=== PATIENT | female | born 1930 | race Caucasian/White ===

== ENCOUNTER 2017-02-13 15:34 | Emergency (ER) | payer MEDICARE, OTHER ==
[~2017-02-13 15:34] MED LIST: DONE5TAB14 PO; FURO1TAB93 PO; LISI-360 PO; LORA0.5T PO; LORTA5 PO; POTA-243 PO; PRAV20 PO; ZOLO50TA PO
[2017-02-13 15:39] VITALS: BP 149/59; PULSE 91; RESP 16; TEMP 98; O2SAT 96
[2017-02-13] MEDS ORDERED: DIPH25CA PO (15:55)
[2017-02-13] MEDS ORDERED: NYST10007 TOPICAL (15:55)
[2017-02-13] MEDS ORDERED: SERT-132 PO (15:55)
[2017-02-13] MEDS ORDERED: CLON0.1T PO (15:55)
[2017-02-13] MEDS ORDERED: CETACRE3 (15:55)
[2017-02-13] MEDS ORDERED: MONT10TA4 PO (15:55)
[2017-02-13 16:43] VITALS: O2SAT 98
--- NOTE | 2017-02-13 16:43 | PD ---
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 Bleeding was noted yesterday evening and was light at that time. After the patient left the shower today there was a puddle of blood on the floor. She has not any antiplatelets or anticoagulants. She denies abdominal pain or vaginal pain. No urinary symptoms. She believes that the bleeding is from her vagina and not from her rectum. PFSH Past Medical History COPD: Yes Dementia: Yes Diabetes: Yes Patient Takes Glucophage: No Diminished Hearing: No Psychiatric: Yes (schitzophrenia) Tetanus Vaccination: Unknown Influenza Vaccination: No ?: Not Past Surgical History Surgical History: No Previous Surgery Social History Alcohol Use: No Tobacco Use: No Substance Use: No Allergies-Medications (Allergen,Severity, Reaction): Coded Allergies: penicillin G (Unverified Allergy, Unknown, 01/16/17) Reported Meds & Prescriptions Reported Meds & Active Scripts Active Macrobid (Nitrofurantoin Monoh/Nitrofur Macro) 100 Mg Cap 100 Mg PO BID 5 Days Reported Nystop Topical (Nystatin Topical) 100,000 Unit/Gm Powd 1 Applic TOPICAL Q12HR Diphenhydramine (Diphenhydramine HCl) 25 Mg Cap 25 Mg PO ONCE Clonidine (Clonidine HCl) 0.1 Mg Tab 0.1 Mg PO BID Cetaphil Moisturizing (Emollient) 1 Cre Cre Sertraline (Sertraline HCl) 50 Mg Tab 50 Mg PO DAILY Montelukast (Montelukast Sodium) 10 Mg Tab 10 Mg PO HS Review of Systems Except as stated in HPI: all other systems reviewed are Neg Physical Exam Narrative GENERAL: Well-developed, well-nourished, awake, alert, no apparent distress. SKIN: Focused skin assessment warm/dry. No pallor. HEAD: Atraumatic. Normocephalic. EYES: Pupils equal and round. No scleral icterus. No injection or drainage. ENT: Mucous membranes pink and moist. NECK: Trachea midline. No JVD. CARDIOVASCULAR: Regular rate and rhythm. RESPIRATORY: No accessory muscle use. Clear to auscultation. Breath sounds equal bilaterally. GASTROINTESTINAL: Abdomen soft, nondistended. Mild diffuse tenderness. No rebound or guarding. RECTUM: No masses, no fissures, no hemorrhoids, heme positive brown stool. 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 Exam limited because the patient could not tolerate speculum exam. Normal external genitalia with some dryness to the skin as well as mild erythema with satellite lesions consistent with Erlinda. There is nice nystatin powder in this region. No blood coming from vagina. No obvious masses. MUSCULOSKELETAL: No obvious deformities. No clubbing. No cyanosis. No edema. NEUROLOGICAL: Awake and alert. No obvious cranial nerve deficits. Motor grossly within normal limits. Normal speech. PSYCHIATRIC: Appropriate mood and affect; insight and judgment normal. Data Data Last Documented VS Vital Signs Date Time Temp Pulse Resp B/P (MAP) Pulse Ox O2 Delivery O2 Flow Rate FiO2 02/13/17 18:23 68 20 198/63 (108) 98 02/13/17 15:39 98.0 Orders Orders Complete Blood Count With Diff (02/13/17 16:35) Comprehensive Metabolic Panel (02/13/17 16:35) Prothrombin Time / Inr (Pt) (02/13/17 16:35) Act Partial Throm Time (Ptt) (02/13/17 16:35) Urinalysis - C+S If Indicated (02/13/17 16:35) Ct Abd/Pel W Iv Contrast(Rout) (02/13/17 16:35) Iv Access Insert/Monitor (02/13/17 16:35) Ecg Monitoring (02/13/17 16:35) Oximetry (02/13/17 16:35) Sodium Chloride 0.9% Flush (Ns Flush) (02/13/17 16:45) Us Pelvis Comp Shoe Coverer/Non-Preg (02/13/17 ) Type And Screen (02/13/17 16:45) Iohexol 350 Inj (Omnipaque 350 Inj) (02/13/17 18:02) Urine Culture (02/13/17 18:35) Nitrofurantoin Monohyd Macrocr (Macrobid (02/13/17 20:15) Labs Laboratory Tests Test 02/13/17 16:40 02/13/17 18:35 White Blood Count 7.7 TH/MM3 Red Blood Count 4.73 MIL/MM3 Hemoglobin 13.3 GM/DL Hematocrit 39.2 % Mean Corpuscular Volume 82.9 FL Mean Corpuscular Hemoglobin 28.0 PG Mean Corpuscular Hemoglobin Concent 33.8 % Red Cell Distribution Width 13.4 % Platelet Count 234 TH/MM3 Mean Platelet Volume 7.8 FL Neutrophils (%) (Auto) 71.5 % Lymphocytes (%) (Auto) 19.6 % Monocytes (%) (Auto) 4.6 % Eosinophils (%) (Auto) 3.5 % Basophils (%) (Auto) 0.8 % Neutrophils # (Auto) 5.4 TH/MM3 Lymphocytes # (Auto) 1.5 TH/MM3 Monocytes # (Auto) 0.4 TH/MM3 Eosinophils # (Auto) 0.3 TH/MM3 Basophils # (Auto) 0.1 TH/MM3 CBC Comment DIFF FINAL Differential Comment Prothrombin Time 10.0 SEC Prothromb Time International Ratio 0.9 RATIO Activated Partial Thromboplast Time 26.2 SEC Blood Urea Nitrogen 15 MG/DL Creatinine 1.00 MG/DL Random Glucose 188 MG/DL Total Protein 7.0 GM/DL Albumin 3.3 GM/DL Calcium Level 8.2 MG/DL Alkaline Phosphatase 104 U/L Aspartate Amino Transf (AST/SGOT) 30 U/L Alanine Aminotransferase (ALT/SGPT) 37 U/L Total Bilirubin 0.5 MG/DL Sodium Level 134 MEQ/L Potassium Level 4.0 MEQ/L Chloride Level 99 MEQ/L Carbon Dioxide Level 29.3 MEQ/L Anion Gap 6 MEQ/L Estimat Glomerular Filtration Rate 53 ML/MIN Urine Color YELLOW Urine Turbidity CLOUDY Urine pH 6.0 Urine Specific [place] 1.020 Urine Protein TRACE mg/dL Urine Glucose (UA) 100 mg/dL Urine Ketones NEG mg/dL Urine Occult Blood LARGE Urine Nitrite NEG Urine Bilirubin NEG Urine Leukocyte Esterase TRACE Urine RBC 50-99 /hpf Urine WBC 9-14 /hpf Urine Squamous Epithelial Cells 6-8 /hpf Urine Bacteria RARE /hpf Microscopic Urinalysis Comment CULTURE INDICATED MDM Medical Decision Making Medical Screen Exam Complete: Yes Emergency Medical Condition: Yes Differential Diagnosis GI bleed, diverticulitis, diverticulosis, colon CA, endometrial CA, uterine fibroids, anemia, UTI Narrative Course Initial vital signs show heart rate 91, blood pressure 149/59, pulse ox 96% on room air, oral temp 98F. CBC shows WBC 7.7, hemoglobin 13.3, hematocrit 39.2, platelets 234. CMP is remarkable for random glucose 188, otherwise unremarkable. Coags are normal. UA is suggestive of UTI. The patient will be started on Macrobid. Pelvis ultrasound: CONCLUSION: 1. The endometrium is mildly prominent and heterogeneous with possible small fluid collection. 2. Bilateral hypoechoic cystic structures in the ovaries left greater than right. CT abdomen pelvis: CONCLUSION: 1. 2.9 cm heterogeneous area in the region of the lower uterine segment of concern for a possible mass. Adnexal regions are within normal limits. 2. Enlarged and fatty infiltrated liver. Case discussed with the patient's primary care physician Dr. Yang. The patient is hemodynamically stable. Her H&H is normal. She does have heme positive/brown stool and reports that her brother had colon cancer. She does not recall if she has ever had a colonoscopy. Patient also has endometrial thickening with a fluid collection in her uterus which is likely some bleeding. There is no active bleeding on physical exam. The patient can be further worked up as an outpatient with both TREE EXPERT as well as GI. The patient's primary care physician Dr. Yang will facilitate outpatient workup. The patient and the patient's daughter were made aware of all findings and provided copies of the CT and ultrasound reports. They are amenable to plan for further workup as an outpatient. They were informed on when to return to the emergency department. [facility] Point of Care Internal Pos. & Neg. Controls: Passed Fecal Specimen Occult Blood: Positive Comment Heme positive brown stool. Diagnosis Primary Impression: Vaginal bleeding Additional Impressions: Heme positive stool UTI (urinary tract infection) Qualified Codes: N39.0 - Urinary tract infection, site not specified; R31.9 - Hematuria, unspecified Referrals: Mirian Anthony MD 3 days [employer] Shannan Parr MD 3 days TREE EXPERT/oncologist Primary Care Physician 3 days Additional Instructions: Follow-up with your primary care physician this week. Follow-up with an TREE EXPERT physician this week. Follow-up with a crusher operator this week. Return to the emergency department for worsening symptoms or any other concerns as discussed. Scripts Nitrofurantoin Monohydrate Macrocrystals (Macrobid) 100 Mg Cap 100 MG PO BID for Infection for 5 Days, CAP 0 Refills Prov: Noble Lara MD 02/13/17 Disposition: 01 DISCHARGE HOME Condition: Stable Noble Lara MD Feb 13, 2017 16:43
[2017-02-13] MEDS ORDERED: SODIUM CHLORIDE 0.9% FLUSH 10 ML FLUSH IV FLUSH PRN (16:45)
[2017-02-13 16:46] VITALS: BP 160/72; PULSE 68; RESP 20; O2SAT 98
[2017-02-13 16:47] LABS: AUTOMATED NEUTROPHIL # 5.4 TH/MM3 (1.8-7.7); BASOPHIL # 0.1 TH/MM3 (0-0.2); BASOPHIL % 0.8 % (0.0-2.0); EOSINOPHIL # 0.3 TH/MM3 (0-0.4); EOSINOPHIL % 3.5 % (0.0-4.0); HEMATOCRIT 39.2 % (35.0-46.0); HEMO FLAGS DIFF FINAL; LYMPH % 19.6 % (9.0-44.0); LYMPHOCYTE # 1.5 TH/MM3 (1.0-4.8); MEAN CELL VOLUME 82.9 FL (80.0-100.0); MEAN CORPUSCULAR HGB CONC 33.8 % (32.0-36.0); MONO % 4.6 % (0.0-8.0); NEUT % 71.5 % (16.0-70.0); PLATELET COUNT 234 TH/MM3 (150-450); RED BLOOD COUNT 4.73 MIL/MM3 (4.00-5.30); RED CELL DISTRIBUTION WIDTH 13.4 % (11.6-17.2); WHITE BLOOD COUNT 7.7 TH/MM3 (4.0-11.0)
[2017-02-13 16:58] LABS: CHLORIDE 99 MEQ/L (98-107); SODIUM (NA) 134 MEQ/L (136-145)
[2017-02-13 17:02] LABS: ANION GAP 6 MEQ/L (5-15); APTT (PATIENT) 26.2 SEC (24.3-30.1); BICARBONATE 29.3 MEQ/L (21.0-32.0); BLOOD UREA NITROGEN 15 MG/DL (7-18); INTERNATIONAL NORMALIZED RATIO 0.9 RATIO
[2017-02-13 17:05] LABS: ALT (GPT) 37 U/L (10-53); AST (GOT) 30 U/L (15-37); GLOMERULAR FILTRATION RATE 53 ML/MIN (>89)
[2017-02-13 17:07] LABS: TOTAL BILIRUBIN ADULT 0.5 MG/DL (0.2-1.0)
[2017-02-13 17:08] LABS: ALKALINE PHOSPHATASE 104 U/L (45-117)
--- NOTE | 2017-02-13 17:49 | RADRPT ---
EXAM DATE/TIME: 02/13/2017 17:28 [facility] COMPARISON: No previous studies available for comparison. INDICATIONS : Vaginal bleeding. MEDICAL HISTORY : Chronic obstructive pulmonary disease. Dementia. Schizophrenia. Diabetes. SURGICAL HISTORY : None. ENCOUNTER: Initial ACUITY: 2 days PAIN SCORE: 0/10 LOCATION: Bilateral pelvis MEASUREMENTS: UTERUS: 11.3 x 6.1 x 2.9 cm ENDOMETRIAL STRIPE: 8 mm RIGHT OVARY: 3.9 x 3.1 x 1.5 cm LEFT OVARY: 5.2 x 4.4 x 2.4 cm FINDINGS: UTERUS: The myometrium has homogeneous echotexture without mass. Endometrium is mildly prominent at 8 mm and mildly heterogeneous with possible small fluid collection. RIGHT OVARY: There are is a small hypoechoic cystic structure measuring 2.8 x 2.3 cm. LEFT OVARY: There is a small to moderate size hypoechoic cystic structure measuring 4 x 2.7 x 1.6 cm. MISCELLANEOUS: No free fluid. CONCLUSION: 1. The endometrium is mildly prominent and heterogeneous with possible small fluid collection. 2. Bilateral hypoechoic cystic structures in the ovaries left greater than right. John Higgins MD on February 13, 2017 at 17:45 Board Certified Radiologist. This report was verified electronically.
[2017-02-13] MEDS ORDERED: IOHEXOL 350 MG/ML 10 ML VIAL (for RAD DIAG) IVCONTRAST ONE (18:02)
[2017-02-13 18:23] VITALS: BP 198/63; PULSE 68; RESP 20; O2SAT 98
--- NOTE | 2017-02-13 18:23 | RADRPT ---
EXAM DATE/TIME: 02/13/2017 17:59 [facility] COMPARISON: No previous studies available for comparison. INDICATIONS : Vaginal bleeding. IV CONTRAST: 85 cc Omnipaque 350 (iohexol) IV ORAL CONTRAST: No oral contrast ingested. RADIATION DOSE: 19.82 CTDIvol (mGy) MEDICAL HISTORY : Chronic obstructive pulmonary disease. Diabetes. SURGICAL HISTORY : None. ENCOUNTER: Initial ACUITY: 2 days PAIN SCALE: 0/10 LOCATION: pelvis TECHNIQUE: Volumetric scanning of the abdomen and pelvis was performed. Using automated exposure control and ad justment of the mA and/or kV according to patient size, radiation dose was kept as low as reasonably achievable to obtain optimal diagnostic quality images. DICOM format image data is available electro nically for review and comparison. FINDINGS: LOWER LUNGS: The visualized lower lungs are clear. LIVER: Liver is severely fatty infiltrated. There is a 18 mm cyst inferiorly of the right hepatic lobe. Live r measures 21.[address] appearance of the gallbladder within normal limits. SPLEEN: Normal size without lesion. PANCREAS: Within normal limits. KIDNEYS: Normal in size and shape. There is no mass, stone or hydronephrosis. ADRENAL GLANDS: Within normal limits. VASCULAR: There is no aortic aneurysm. BOWEL/MESENTERY: The stomach, small bowel, and colon demonstrate no acute abnormality. There is no free intraperitone al air or fluid. The appendix is well-visualized, normal. ABDOMINAL WALL: Within normal limits. RETROPERITONEUM: There is no lymphadenopathy. BLADDER: Left lateral and right posterolateral bladder diverticula are present. No bladder wall thickening see n. REPRODUCTIVE: Mildly masslike heterogeneous area measuring approximately 2.9 cm in size is seen in the region of th e lower uterine segment/, series 2 image 75. INGUINAL: There is no lymphadenopathy or hernia. MUSCULOSKELETAL: No acute bony abnormality demonstrated. CONCLUSION: 1. 2.9 cm heterogeneous area in the region of the lower uterine segment of concern for a possible mas s. Adnexal regions are within normal limits. 2. Enlarged and fatty infiltrated liver.. Charbel Vogt MD on February 13, 2017 at 18:18 Board Certified Radiologist. This report was verified electronically.
[2017-02-13 18:58] LABS: BLOOD, URINE LARGE (NEG); GLUCOSE,URINE 100 mg/dL (NEG); KETONE, URINE NEG (NEG); NITRITE,URINE NEG (NEG)
[2017-02-13 19:02] LABS: URINE COLOR YELLOW (YELLW/STRAW)
[2017-02-13 19:07] LABS: BACTERIA, URINE RARE /hpf; COMMENT (UR) CULTURE INDICATED; CULTURE IF INDICATED CULTURE INDICATED
[2017-02-13] MEDS ORDERED: MACR100C2 PO (20:09)
[2017-02-13] MEDS ORDERED: NITROFURANTOIN MONOHYD MACROCR 100 MG CAP PO ONE (20:15)
[2017-02-13 20:25] VITALS: BP 178/88
== END 2017-02-13 20:26 | disposition home or self-care (01) ==
LOC: PHED 15:34
DX: N93.9 Abnormal uterine and vaginal bleeding, unspecified (principal); N39.0 Urinary tract infection, site not specified; R31.9 Hematuria, unspecified; E11.9 Type 2 diabetes mellitus without complications; J44.9 Chronic obstructive pulmonary disease, unspecified; F03.90 Unspecified dementia, unspecified severity, without behavioral disturbance, psychotic disturbance, mood disturbance, and anxiety
CPT/HCPCS: 74177; 76856; 80053; 81001; 85025; 85610; 85730; 86850; 86900; 86901; 87086; 99285; Q9967